=== PATIENT | male | born 1980 | race Caucasian/White ===

== ENCOUNTER 2024-10-27 15:48 | Inpatient (IN) ==
[2024-10-27 15:57] VITALS: TEMP 96.8
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
[2024-10-27] MEDS: ACETAMINOPHEN 1,000 MG/100 ML VIAL IV STA (17:15)
[2024-10-27 17:39] LABS: Appearance Urine Clear (Clear); Bacteria Urine Automated None Seen (None Seen); Bilirubin Urine Negative (Negative); Blood Urine Negative (Negative); Cast Urine Automated 0-2 /lpf (0-2); Color Urine Dark Yellow; Epithelial Cell Urine Auto 0-2 /hpf (0-2); Glucose Urine UA Negative (Negative); Ketones Urine Trace (Negative); Leukocyte Esterase Urine Negative (Negative); Nitrite Urine Negative (Negative); Protein Urine Trace (Negative); RBC Urine Automated 0-2 /hpf (0-2); Urobilinogen Urine Negative (Negative); WBC Urine Automated 0-5 /hpf (0-5)
[2024-10-27 17:40] LABS: Basophils # (auto) 0.05 K/uL (0.00-0.20); Basophils % (auto) 0.7 %; Eosinophils % (auto) 1.3 %; Hematocrit (blood only) 41.9 % (42.0-52.0); Hemoglobin 14.4 g/dl (14.0-18.0); Immature Granulocytes # (auto) 0.01 K/uL (0.01-0.20); Immature Granulocytes % (auto) 0.1 %; Lymphocytes # (auto) 2.53 K/uL (1.20-3.40); Lymphocytes % (auto) 33.4 %; Mean Corpuscular Hemoglobin 30.2 pg (25.0-34.0); Mean Corpuscular Hgb Conc 34.4 g/dL (32.0-36.0); Mean Corpuscular Volume 87.8 fL (80.0-100.0); Mean Platelet Volume 11.4 fL (9.4-12.4); Monocytes # (auto) 0.52 K/uL (0.11-0.59); Monocytes % (auto) 6.9 %; Neutrophils # (auto) 4.36 K/uL (1.40-6.50); Neutrophils % (auto) 57.6 %; Platelet Count 223 K/uL (130-400); RDW Coefficient of Variation 12.1 % (11.5-14.5); RDW Standard Deviation 39.5 fL (36.4-46.3); Red Blood Count 4.77 M/uL (4.70-6.10); White Blood Count 7.57 K/ul (4.8-10.8)
[2024-10-27 17:50] LABS: Albumin Globulin Ratio 1.4 (0.9-2); Albumin Level 4.4 gm/dl (3.4-5.0); BUN Creatinine Ratio 31.8 (10-20); Bilirubin,Total 0.6 mg/dl (0.2-1.0); Calcium 9.3 mg/dl (8.6-10.3); Creatinine Clr Calc Pharmacy 169.5 ml/min; Globulin 3.2 gm/dl (2.5-4.0); Potassium 3.9 mmol/L (3.5-5.1); Total Protein 7.6 gm/dl (6.0-8.3)
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
[2024-10-27 17:57] LABS: Troponin I High Sensitivity 11.4 pg/ml (0-20)
[2024-10-27 18:04] LABS: Partial Thromboplastin Time 27 Seconds (21-31); Prothrombin Time 10.7 Seconds (9.0-12.0)
[2024-10-27] MEDS: OPTIRAY 320 100ml IV ONE (18:34)
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
--- NOTE | 2024-10-27 19:03 | CT Scan Report ---
EXAM: CT Lumbar Spine Without Intravenous Contrast INDICATION: Many years of low back pain. TECHNIQUE: Axial computed tomography images of the lumbar spine without intravenous contrast. Sagittal and coronal reformatted images were created and reviewed. This CT exam was performed using one or more of the following dose reduction techniques: automated exposure control, adjustment of the mA and/or kV according to patient size, and/or use of iterative reconstruction technique. COMPARISON: Mild spondylosis L4 and L5. Prominent uncal spurring at L4-L5 and L5-S1. No fracture or subluxation. FINDINGS: Limitations: None. Vertebrae: Vertebral body heights maintained. No fracture or significant subluxation. Sacrum/coccyx: No significant abnormality noted. No acute change noted. Discs/spinal canal/neural foramina: Moderate to space narrowing L4-L5 and L5-S1. There is mild ventral canal stenosis by diffuse disc bulge L2-L3 and L3-L4. Diffuse disc bulge and ligamentous hypertrophy creates moderate canal and foraminal stenosis at L4-L5. Right diffuse disc bulge L5-S1 without stenosis. Soft tissues: No significant abnormality noted. IMPRESSION: Degenerative changes noted in the spine most notable at L4-L5. No acute abnormality. ACT 112: Negative or not required by law. Electronically signed by Briana Vang 10-27-2024 7:03 PM
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
[2024-10-28] MEDS ORDERED: MAGNESIUM HYDROXIDE SUSP 30 ML UDC PO PRN (00:33)
[2024-10-28] MEDS ORDERED: CYCLOBENZAPRINE HCL 10 MG TAB PO PRN (00:33)
[2024-10-28] MEDS ORDERED: ONDANSETRON INJ 2 MG/ML 2 ML VIAL IV PRN (00:33)
[2024-10-28] MEDS ORDERED: ACETAMINOPHEN 325 MG TAB PO PRN (00:33)
[2024-10-28] MEDS ORDERED: ALUMINUM/MAGNESIUM SUSP 30 ML UDC PO PRN (00:33)
[2024-10-28] MEDS ORDERED: POLYETHYLENE (MIRALAX) 17 GM PACK PO PRN (00:33)
[2024-10-28] MEDS: LIDOCAINE 5% 1 PATCH TD STA (00:53)
[2024-10-28] MEDS: LIDOCAINE 5% 1 PATCH TD ONE (00:54)
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
[2024-10-28] MEDS: ACETAMINOPHEN 1,000 MG/100 ML VIAL IV SCH (02:32)
--- NOTE | 2024-10-28 04:56 | Billing Data ---
Date of Service October 28, 2024 Coding Level of Care Code 64520 INT INP/OBS CARE
--- NOTE | 2024-10-28 09:11 | XCELERA ---
[id number]
[2024-10-28] MEDS: cloNIDine HCL 0.1 MG TAB PO SCH (09:55)
[2024-10-28] MEDS: MoRPHine SULFATE 2 MG/ML CARP IV PRN (09:55)
[2024-10-28] MEDS: buPROPion XL 300 MG TABCR PO SCH (09:55)
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
--- NOTE | 2024-10-28 15:00 | Electrocardiogram Report ---
Test Reason : Blood Pressure : */* mmHG Vent. Rate : 75 BPM Atrial Rate : 75 BPM P-R Int : 176 ms QRS Dur : 180 ms QT Int : 424 ms P-R-T Axes : 56 239 15 degrees QTcB Int : 473 ms Normal sinus rhythm Right bundle branch block , plus right ventricular hypertrophy Abnormal ECG When compared with ECG of 10-Oct-2024 15:19, QRS axis Shifted left T wave inversion more evident in Anterior leads T wave inversion no longer evident in Lateral leads Confirmed by Yeison Mills ([id number]) on 10/28/2024 3:00:29 PM Referred By: REFERRED SELF Confirmed By: Yeison Mills
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
[2024-10-28 16:08] VITALS: BP 133/82; PULSE 82; RESP 16; O2SAT 97
--- NOTE | 2024-10-29 08:38 | XCELERA ---
[id number] [id number]
== END 2024-10-28 16:05 | disposition home or self-care (01) | DRG 552 ==
LOC: ED 15:48 → EDINP 22:15 → SUATTDRO 22:15 → EDINP 10-28 00:33

== ENCOUNTER 2024-11-15 14:31 | Observation (INO) ==
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
[2024-11-15 16:47] LABS: Basophils # (auto) 0.08 K/uL (0.00-0.20); Eosinophils # (auto) 0.16 K/uL (0.00-0.50); Eosinophils % (auto) 2.1 %; Hemoglobin 14.9 g/dl (14.0-18.0); Immature Granulocytes # (auto) 0.03 K/uL (0.01-0.20); Immature Granulocytes % (auto) 0.4 %; Lymphocytes % (auto) 46.5 %; Mean Corpuscular Hemoglobin 29.4 pg (25.0-34.0); Mean Corpuscular Hgb Conc 33.1 g/dL (32.0-36.0); Mean Corpuscular Volume 88.9 fL (80.0-100.0); Mean Platelet Volume 11.1 fL (9.4-12.4); Monocytes # (auto) 0.68 K/uL (0.11-0.59); Monocytes % (auto) 8.8 %; Neutrophils % (auto) 41.2 %; Platelet Count 205 K/uL (130-400); RDW Coefficient of Variation 12.7 % (11.5-14.5); RDW Standard Deviation 41.2 fL (36.4-46.3); Red Blood Count 5.06 M/uL (4.70-6.10); White Blood Count 7.75 K/ul (4.8-10.8)
--- NOTE | 2024-11-15 16:56 | Electrocardiogram Report ---
Test Reason : Blood Pressure : */* mmHG Vent. Rate : 60 BPM Atrial Rate : 60 BPM P-R Int : 184 ms QRS Dur : 176 ms QT Int : 480 ms P-R-T Axes : 25 -85 13 degrees QTcB Int : 480 ms Normal sinus rhythm Right bundle branch block Left anterior fascicular block Bifascicular block Abnormal ECG When compared with ECG of 27-Oct-2024 17:01, T wave inversion less evident in Anterior leads Confirmed by Kris Car ([id number]) on 11/15/2024 4:56:15 PM Referred By: REFERRED SELF Confirmed By: Kris Car
[2024-11-15 17:06] LABS: Creatinine Clr Calc Pharmacy 145.3 ml/min
[2024-11-15 17:11] LABS: Troponin I High Sensitivity 8.3 pg/ml (0-20)
[2024-11-15 17:20] LABS: Alanine Aminotransferase 16 U/L (7-52); Albumin Globulin Ratio 1.6 (0.9-2); Albumin Level 4.9 gm/dl (3.4-5.0); Alkaline Phosphatase 49 U/L (34-104); Anion Gap 11 (3-11); Aspartate Aminotransferase 22 U/L (13-39); BUN Creatinine Ratio 13.4 (10-20); Bilirubin,Total 0.6 mg/dl (0.2-1.0); Blood Urea Nitrogen 11 mg/dl (6-23); Calcium 9.8 mg/dl (8.6-10.3); Carbon Dioxide 23 mmol/L (21-32); Chloride 106 mmol/L (98-107); Globulin 3.1 gm/dl (2.5-4.0); Glucose 95 mg/dl (70-99(Fasting)); Lipase 180 U/L (11-82); Magnesium 2.2 mg/dl (1.7-2.4); Potassium 4.1 mmol/L (3.5-5.1); Sodium 140 mmol/L (136-145); Thyroid Stimulating Hormone 2.408 uIu/ml (0.300-4.500)
[2024-11-15 17:31] LABS: Appearance Urine Clear (Clear); Bilirubin Urine Negative (Negative); Blood Urine Negative (Negative); Color Urine Yellow; Glucose Urine UA Negative (Negative); Ketones Urine Negative (Negative); Leukocyte Esterase Urine Negative (Negative); Nitrite Urine Negative (Negative); Protein Urine Negative (Negative); Specific Gravity Urine 1.012 (1.000-1.030); Urobilinogen Urine Negative (Negative)
[2024-11-15] MEDS: SODIUM CHLORIDE 0.9% 1,000 ML IV ONE (17:57)
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
[2024-11-15 21:30] LABS: Procalcitonin < 0.02 ng/ml (0-0.5)
[2024-11-15 21:51] LABS: Folate (Folic Acid),Ser orPlas > 22.30 ng/ml (>5.38)
[2024-11-15 21:52] LABS: Vitamin B12 964 pg/ml (180-914)
[2024-11-15 22:28] LABS: C Reactive Protein < 0.50 mg/dl (0-0.5)
[2024-11-15] MEDS ORDERED: MAGNESIUM HYDROXIDE SUSP 30 ML UDC PO PRN (23:45)
[2024-11-15] MEDS ORDERED: POLYETHYLENE (MIRALAX) 17 GM PACK PO PRN (23:45)
[2024-11-15] MEDS ORDERED: ALUMINUM/MAGNESIUM SUSP 30 ML UDC PO PRN (23:45)
[2024-11-15] MEDS ORDERED: ONDANSETRON INJ 2 MG/ML 2 ML VIAL IV PRN (23:45)
[2024-11-15] MEDS: ACETAMINOPHEN 325 MG TAB PO PRN (23:52)
[2024-11-15] MEDS: MELATONIN 3 MG TAB PO PRN (23:52)
[2024-11-16 01:36] LABS: Lyme Screen Rflx Confirmation Negative (Negative)
[2024-11-16 08:56] VITALS: BP 130/79; PULSE 65; RESP 18; TEMP 97.9; O2SAT 95
[2024-11-16 14:02] LABS: A calco-baum cmplx NotReported Not Detected (NotDetected); Bact fragilis Not Reported Not Detected (NotDetected); Blood Culture Id Panel See PCR Comment (NotDetected); C auris Not Reported Not Detected (NotDetected); Calbicans Not Reported Not Detected (NotDetected); Candida glabrata Not Reported Not Detected (NotDetected); Candida krusei Not Reported Not Detected (NotDetected); Cneoformans/gatti Not Reported Not Detected (NotDetected); Cparapsilosis Not Reported Not Detected (NotDetected); E cloacae compx Not Reported Not Detected (NotDetected); Efaecalis Not Reported Not Detected (NotDetected); Efaecium Not Reported Not Detected (NotDetected); Enterobacterales Not Reported Not Detected (NotDetected); Escherichia coli Not Reported Not Detected (NotDetected); H influenzae Not Reported Not Detected (NotDetected); K aerogenes Not Reported Not Detected (NotDetected); Koxytoca Not Reported Not Detected (NotDetected); Kpneumoniae grp Not Reported Not Detected (NotDetected); Lmonocyt Not Reported Not Detected (NotDetected); N meningitidis Not Reported Not Detected (NotDetected); P aeruginosa Not Reported Not Detected (NotDetected); Proteus spp Not Reported Not Detected (NotDetected); Salmonella spp Not Reported Not Detected (NotDetected); Staph lugdunensis Not Reported Not Detected (NotDetected); Staph spp. Not Reported DETECTED (NotDetected); Staphaureus Not Reported Not Detected (NotDetected); Staphepi Not Reported Not Detected (NotDetected); Stenmaltophilia Not Reported Not Detected (NotDetected); Strep agal(GrpB) Not Reported Not Detected (NotDetected); Strep pneum Not Reported Not Detected (NotDetected); Strep pyog (GrpA) Not Reported Not Detected (NotDetected); Strep spp Not Reported Not Detected (NotDetected)
[2024-11-16 14:08] LABS: Staphylococcus spp. DETECTED (NotDetected)
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
--- NOTE | 2024-11-16 22:12 | Billing Data ---
Date of Service November 16, 2024 Coding Level of Care Code 77783 INT INP/OBS CARE
== END 2024-11-16 14:00 | disposition home or self-care (01) ==
LOC: ED 14:31 → 3N 14:31 → SUATTDRO 20:57 → 3N 22:52
DX: G47.00 Insomnia, unspecified; G89.29 Other chronic pain; R53.1 Weakness; Z79.899 Other long term (current) drug therapy; R53.83 Other fatigue; Z98.890 Other specified postprocedural states; R74.8 Abnormal levels of other serum enzymes; M54.50 Low back pain, unspecified; R45.89 Other symptoms and signs involving emotional state